=== PATIENT | male | born 1995 | race Caucasian/White ===

== ENCOUNTER 2018-11-27 16:09 | Emergency (ER) | payer OTHER ==
[~2018-11-27] VITALS: Ht 185.4 cm; Wt 100.2 kg
[2018-11-27 16:35] VITALS: BP 136/81
--- NOTE | 2018-11-27 16:35 | NUR ---
PT TRIAGED AND SENT TO ER [facility].
--- NOTE | 2018-11-27 18:25 | NUR ---
CALLED, NO RESPONSE
--- NOTE | 2018-11-27 18:29 | NUR ---
CALLED, NO RESPONSE
--- NOTE | 2018-11-27 18:31 | NUR ---
LWBS AT THIS TIME. Addendum: 11/27/18 at 1831 by [email or web address] LWBS AT THIS TIME. NOTIFIED.
== END 2018-11-27 18:31 | disposition left against medical advice (07) ==
LOC: MED 16:09
DX: R20.0 Anesthesia of skin (principal); M79.641 Pain in right hand; Z53.21 Procedure and treatment not carried out due to patient leaving prior to being seen by health care provider